=== PATIENT | female | born 1960 | race American Indian/Alaskan Native ===

== ENCOUNTER 2016-11-24 10:30 | Emergency (ER) | payer OTHER ==
--- NOTE | 2016-11-24 18:19 | Emergency Department Report ---
HPI - General Chief Complaint: Extremity Injury, Upper Time Seen by Provider: 11/24/16 17:28 - HPI HPI: 56-year-old female presents today with right hand pain was playing volleyball 3 weeks ago. Patient states that she hurt her right hand but the pain worsened yesterday. Describes her pain as a 9 out of 10 constant, throbbing ache. Positive for pain relief with ice. She tried Tylenol and Advil with temporary relief. Denies numbness, weakness, paresthesias. Denies fevers, chills, nausea , vomiting, chest pain, shortness of breath, abdominal pain. ED Past Medical Hx - Past Medical History Previous Medical History?: Yes Hx GERD: Yes Additional medical history: acid reflux - Surgical History Past Surgical History?: Yes Additional Surgical History: c section - Social History Smoking Status: Never Smoker - Medications Home Medications: Home Medications Medication Instructions Recorded Confirmed Last Taken Type Fluconazole [Diflucan] 150 mg PO QDAY #1 tablet 10/05/13 Unknown Rx RX: Amoxicillin [Trimox CAP] 1,000 mg PO Q8H #60 capsule 10/05/13 Unknown Rx RX: Hydrocodone Bit/Acetaminophen 1 each PO Q6H PRN #11 tablet 10/05/13 Unknown Rx [Lortab 5-500 Tablet] RX: Acetaminophen/Codeine 1 tab PO Q6H PRN #15 tab 03/22/14 Unknown Rx [Acetaminophen-Codeine #3 TAB] RX: Methocarbamol [Robaxin TAB] 750 mg PO Q8H PRN #21 tablet 03/22/14 Unknown Rx RX: Naproxen Sodium (Nf) [Anaprox 550 mg PO BID PRN #14 tablet 03/22/14 Unknown Rx DS TAB] traMADol [Ultram 50 MG tab] 50 mg PO Q4HR PRN #20 tablet 05/24/15 Unknown Rx Naproxen [Naprosyn] 500 mg PO BID #30 tablet 11/24/16 Unknown Rx ED Review of Systems ROS: Stated complaint: RT HAND INJURY Other details as noted in HPI Constitutional: denies: chills, fever, malaise Eyes: denies: eye pain ENT: denies: ear pain, throat pain, congestion Respiratory: denies: cough, shortness of breath, wheezing Cardiovascular: denies: chest pain, palpitations Endocrine: no symptoms reported Gastrointestinal: denies: abdominal pain, nausea, vomiting Musculoskeletal: joint swelling, arthralgia Skin: denies: rash Neurological: denies: headache, weakness, numbness, paresthesias Physical Exam - Physical Exam Vital Signs: Vital Signs 11/24/16 11:29 Temperature 98.6 F Pulse Rate 70 Respiratory 16 Rate Blood Pressure 126/68 O2 Sat by Pulse 100 Oximetry Physical Exam: GENERAL: The patient is well-developed and well-nourished. Patient is in NAD. HEAD: Normocephalic. Atraumatic. CHEST/LUNGS: Clear to auscultation throughout. HEART/CARDIOVASCULAR: Regular rate and rhythm. ABDOMEN: Abdomen is soft, nontender. No guarding or rebound tenderness. RIGHT HAND: Limited range of motion due to pain. Tenderness to palpation over anatomic snuffbox. Positive for edema. Normal sensation. 2 point discrimination intact. Peripheral pulses intact. Capillary refill less than 2 seconds. NEURO: Alert and oriented x 3. Normal gait. ED Course Vital Signs 11/24/16 11:29 Temperature 98.6 F Pulse Rate 70 Respiratory 16 Rate Blood Pressure 126/68 O2 Sat by Pulse 100 Oximetry ED Medical Decision Making - Lab Data Vital Signs 11/24/16 11/24/16 11:29 18:49 Temperature 98.6 F Pulse Rate 70 70 Respiratory 16 18 Rate Blood Pressure 126/68 Blood Pressure 122/64 [Left] O2 Sat by Pulse 100 100 Oximetry - Medical Decision Making 56-year-old female presents today with right hand pain post [place] injury 3 weeks ago. Her x-ray results reveal no fracture or dislocation, mild soft tissue swelling is seen. Patient is recommended to rest, ice, elevate, compress. Patient is in no acute distress at this time. She will be discharged home and is encouraged to follow up with a primary care provider. She will be sent home on naproxen and is encouraged to return to the emergency room for any worsening symptoms. Critical care attestation.: If time is entered above; I have spent that time in minutes in the direct care of this critically ill patient, excluding procedure time. ED Disposition Clinical Impression: Hand pain Qualifiers: Laterality: right Qualified Code(s): M79.641 - Pain in right hand Disposition: DISCHARGED TO HOME OR SELFCARE Is pt being admited?: No Does the pt Need Aspirin: No Condition: Stable Instructions: Hand Sprain (ED), Arthralgia (ED) Additional Instructions: Follow-up with primary care provider. Return to the emergency department if symptoms worsen. Prescriptions: Naproxen [Naprosyn] 500 mg PO BID #30 tablet Referrals: PRIMARY CARE, [Primary Care Provider] - 3-5 Days [facility] [Outside] - 3-5 Days ROSSY FARMER MD [Staff Physician] - 3-5 Days Forms: Work/School Release Form(ED)
[2016-11-24 18:50] VITALS: BP 122/64
--- NOTE | 2016-11-24 18:57 | XRay Report ---
FINAL REPORT PROCEDURE: XR HAND 2V RT TECHNIQUE: Two views of the right hand are obtained HISTORY: Anatomic snuffbox tenderness, limited ROM COMPARISON: No prior studies are available for comparison. FINDINGS: There is no fracture or dislocation. No arthritic changes are seen. There may be mild soft tissue swelling in the base of the 1st finger. No radiopaque foreign body is seen. IMPRESSION: Mild soft tissue swelling is seen.
== END 2016-11-24 19:19 | disposition home or self-care (01) ==
LOC: ED 10:30
DX: M79.641 Pain in right hand (principal); K21.9 Gastro-esophageal reflux disease without esophagitis
CPT/HCPCS: 99283

== ENCOUNTER 2018-05-15 17:20 | Emergency (ER) | payer OTHER ==
[2018-05-15 17:29] VITALS: BP 139/59
--- NOTE | 2018-05-15 18:55 | Emergency Department Report ---
Minor Respiratory - HPI Chief Complaint: Upper Respiratory Infection Stated Complaint: COUGH/ PAIN Time Seen by Provider: 05/15/18 17:55 Duration: 4 Days Pain Location: Chest Severity: moderate Minor Respiratory: Yes Rhinorrhea, Yes Able to Tolerate Fluids, Yes Cough ( productive of yellow sputum), Yes Shortness of Breath, No Sore Throat, No Ear Pain, No Sick Contacts, No Hemoptysis, No Chest Pain, No Fever ED Review of Systems ROS: Stated complaint: COUGH/ PAIN Other details as noted in HPI Comment: All other systems reviewed and negative Musculoskeletal: back pain ED Past Medical Hx - Past Medical History Hx GERD: Yes Additional medical history: acid reflux - Surgical History Additional Surgical History: c section - Social History Smoking Status: Never Smoker Substance Use Type: Alcohol - Medications Home Medications: Home Medications Medication Instructions Recorded Confirmed Last Taken Type Amoxicillin [Trimox CAP] 1,000 mg PO Q8H #60 capsule 10/05/13 Unknown Rx Fluconazole [Diflucan] 150 mg PO QDAY #1 tablet 10/05/13 Unknown Rx Hydrocodone Bit/Acetaminophen 1 each PO Q6H PRN #11 tablet 10/05/13 Unknown Rx [Lortab 5-500 Tablet] Acetaminophen/Codeine [Tylenol 1 tab PO Q6H PRN #15 tab 03/22/14 Unknown Rx /Codeine # 3 tab] Methocarbamol [Robaxin TAB] 750 mg PO Q8H PRN #21 tablet 03/22/14 Unknown Rx Naproxen Sodium (Nf) [Anaprox DS 550 mg PO BID PRN #14 tablet 03/22/14 Unknown Rx TAB] traMADol [Ultram 50 MG tab] 50 mg PO Q4HR PRN #20 tablet 05/24/15 Unknown Rx Naproxen [Naprosyn] 500 mg PO BID #30 tablet 11/24/16 Unknown Rx ALBUTEROL Inhaler [ProAir HFA 2 puff IH QID PRN #1 inhalation 05/15/18 Unknown Rx Inhaler] Azithromycin [Zithromax Z-MARVA] 250 mg PO DAILY #6 tablet 05/15/18 Unknown Rx Benzonatate [Tessalon Perles] 100 mg PO Q8HR #10 capsule 05/15/18 Unknown Rx predniSONE [Deltasone] 20 mg PO QDAY #5 tab 05/15/18 Unknown Rx Minor Respiratory Exam - Exam General: Vital signs noted. No distress. Alert and acting appropriately. HEENT: Yes Moist Mucous Membranes, No Pharyngeal Erythema, No Pharyngeal Exudates, No Rhinorrhea, No Conjuctival Injection, No Frontal Tenderness, No Maxillary Tenderness Ear: Neither TM Bulge, Neither TM Erythema, Neither EAC Pain, Neither EAC Discharge Neck: Yes Supple, No Adenopathy Lungs: Yes Good Air Exchange, No Wheezes, No Ronchi, No Stridor, No Cough, No Labored Respirations, No Retractions, No Use of Accessory Muscles, No Other Abnormal Lung Sounds Heart: Yes Regular, No Murmur Abdomen: Yes Normal Bowel Sounds, No Tenderness, No Peritoneal Signs Skin: No Rash, No Edema Neurologic: Alert and oriented, no deficits. Musculoskeletal: Unremarkable. ED Course Vital Signs 05/15/18 17:25 Temperature 97.6 F Pulse Rate 96 H Respiratory 19 Rate Blood Pressure 139/59 O2 Sat by Pulse 100 Oximetry ED Medical Decision Making - Radiology Data interpreted by me: Chest x-ray shows no acute process Critical care attestation.: If time is entered above; I have spent that time in minutes in the direct care of this critically ill patient, excluding procedure time. ED Disposition Clinical Impression: Acute bronchitis Qualifiers: Bronchitis organism: unspecified organism Qualified Code(s): J20.9 - Acute bronchitis, unspecified Disposition: DC-01 TO HOME OR SELFCARE Is pt being admited?: No Does the pt Need Aspirin: No Condition: Stable Instructions: Acute Bronchitis (ED) Referrals: PRIMARY CARE, [Primary Care Provider] - 3-5 Days
--- NOTE | 2018-05-15 18:56 | XRay Report ---
FINAL REPORT EXAM: XR CHEST ROUTINE 2V HISTORY: [facility] TECHNIQUE: Two view chest PA and lateral PRIORS: None. FINDINGS: Cardiac and mediastinal contours are unremarkable. No focal pulmonary infiltrate is identified. No pleural fluid collection seen. Pulmonary vasculature is unremarkable. IMPRESSION: Negative two-view chest
== END 2018-05-15 19:00 | disposition home or self-care (01) ==
LOC: ED 17:20
DX: J20.9 Acute bronchitis, unspecified (principal); K21.9 Gastro-esophageal reflux disease without esophagitis
CPT/HCPCS: 71046; 99283

== ENCOUNTER 2019-10-14 14:56 | Emergency (ER) | payer OTHER ==
--- NOTE | 2019-10-14 15:09 | Emergency Department Report ---
Blank Doc - Documentation Documentation: 59-year-old female that presents with epigsatric abdominal pain with radiation to back. This initial assessment/diagnostic orders/clinical plan/treatment(s) is/are subject to change based on patient's health status, clinical progression and re- assessment by fellow clinical providers in the ED. Further treatment and workup at subsequent clinical providers discretion. Patient/guardians urged not to elope from the ED as their condition may be serious if not clinically assessed and managed. Initial orders include: 1- Patient sent to [facility] for further evaluation and treatment 2- labs 3- UA
[2019-10-14 15:27] LABS: Basophils % (Auto) 0.9 % (0.0-1.8); Eosinophils # (Auto) 0.1 K/mm3 (0.0-0.4); Eosinophils % (Auto) 2.8 % (0.0-4.3); Hematocrit 39.9 % (30.3-42.9); Hemoglobin 13.5 gm/dl (10.1-14.3); Lymphocytes # (Auto) 2.2 K/mm3 (1.2-5.4); Lymphocytes % (Auto) 51.3 % (13.4-35.0); Mean Corpuscular HGB Conc 34 % (30-34); Mean Corpuscular Volume 92 fl (79-97); Monocytes # (Auto) 0.3 K/mm3 (0.0-0.8); Monocytes % (Auto) 7.5 % (0.0-7.3); Platelet Count 252 K/mm3 (140-440); Red Blood Count 4.34 M/mm3 (3.65-5.03); Red Cell Distribution Width 12.6 % (13.2-15.2)
[2019-10-14 15:46] LABS: Alanine Aminotransferase 11 units/L (7-56); Albumin 4.2 g/dL (3.9-5); BUN/Creatinine Ratio 13; Blood Urea Nitrogen 8 mg/dL (7-17); Calcium 9.4 mg/dL (8.4-10.2); Hemolysis Index 19
--- NOTE | 2019-10-14 16:05 | Emergency Department Report ---
ED Abdominal Pain HPI - General Chief Complaint: Abdominal Pain Stated Complaint: ABD PAIN Time Seen by Provider: 10/14/19 15:07 Source: patient Mode of arrival: Ambulatory Limitations: No Limitations - History of Present Illness Initial Comments: This is a 59-year-old female who gives a very graphic description of burning in her epigastric area which radiates down the anterior aspect of both her thighs. She states that she had an episode of pain last night which was severe. She is totally comfortable the pain has resolved today. She states that she's been going to a family physician since October 04 for burning. She was placed on Nexium she says. She has been out of her Nexium for some time. 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 Patient states he had a biopsy of a mass which "came out okay". She states that she hasn't followed up with the gastroenterology clinic at [facility] for 3 years. She admits that she was told that she had to follow-up with the GI clinic but never did so. MD Complaint: abdominal pain -: Gradual, week(s) Location: epigastric Radiation: other (bilateral legs) Severity: severe (last night was severe now resolved) Quality: burning Consistency: intermittent Improves With: nothing Worsens With: nothing Context: other (see above history) Associated Symptoms: denies other symptoms - Related Data Previous Rx's Medication Instructions Recorded Last Taken Type Amoxicillin [Trimox CAP] 1,000 mg PO Q8H #60 capsule 10/05/13 Unknown Rx Fluconazole [Diflucan] 150 mg PO QDAY #1 tablet 10/05/13 Unknown Rx Hydrocodone Bit/Acetaminophen 1 each PO Q6H PRN #11 tablet 10/05/13 Unknown Rx [Lortab 5-500 Tablet] Acetaminophen/Codeine [Tylenol 1 tab PO Q6H PRN #15 tab 03/22/14 Unknown Rx /Codeine # 3 tab] Naproxen Sodium (Nf) [Anaprox DS 550 mg PO BID PRN #14 tablet 03/22/14 Unknown Rx TAB] methOCARBAMOL [Robaxin TAB] 750 mg PO Q8H PRN #21 tablet 03/22/14 Unknown Rx Naproxen [Naprosyn] 500 mg PO BID #30 tablet 11/24/16 Unknown Rx ALBUTEROL Inhaler (OR & NICU) 2 puff IH QID PRN #1 inhalation 05/15/18 Unknown Rx [ProAir HFA Inhaler] Azithromycin [Zithromax Z-MARVA] 250 mg PO DAILY #6 tablet 05/15/18 Unknown Rx Benzonatate [Tessalon Perles] 100 mg PO Q8HR #10 capsule 05/15/18 Unknown Rx predniSONE [Deltasone] 20 mg PO QDAY #5 tab 05/15/18 Unknown Rx Lansoprazole 30 mg PO BID #60 capsule. 10/14/19 Unknown Rx traMADoL [Ultram 50 MG tab] 50 mg PO Q6HR PRN #10 tablet 10/14/19 Unknown Rx Allergies Allergy/AdvReac Type Severity Reaction Status Date / Time codeine AdvReac Nausea Verified 05/24/15 10:04 hydrocodone AdvReac Nausea Verified 05/24/15 10:04 ED Review of Systems ROS: Stated complaint: ABD PAIN Other details as noted in HPI Constitutional: denies: chills, fever Eyes: denies: eye pain, eye discharge, vision change ENT: denies: ear pain, throat pain Respiratory: denies: cough, shortness of breath, wheezing Cardiovascular: denies: chest pain, palpitations Endocrine: no symptoms reported Gastrointestinal: abdominal pain. denies: nausea, diarrhea Genitourinary: denies: urgency, dysuria, discharge Musculoskeletal: denies: back pain, joint swelling, arthralgia Skin: denies: rash, lesions Neurological: denies: headache, weakness, paresthesias Psychiatric: denies: anxiety, depression Hematological/Lymphatic: denies: easy bleeding, easy bruising ED Past Medical Hx - Past Medical History Previous Medical History?: Yes Hx GERD: Yes Additional medical history: acid reflux. Now states that she had her esophagus stretched and the biopsy of a mass. - Surgical History Past Surgical History?: Yes Additional Surgical History: c section - Social History Smoking Status: Never Smoker Substance Use Type: Alcohol - Medications Home Medications: Home Medications Medication Instructions Recorded Confirmed Last Taken Type Amoxicillin [Trimox CAP] 1,000 mg PO Q8H #60 capsule 10/05/13 Unknown Rx Fluconazole [Diflucan] 150 mg PO QDAY #1 tablet 10/05/13 Unknown Rx Hydrocodone Bit/Acetaminophen 1 each PO Q6H PRN #11 tablet 10/05/13 Unknown Rx [Lortab 5-500 Tablet] Acetaminophen/Codeine [Tylenol 1 tab PO Q6H PRN #15 tab 03/22/14 Unknown Rx /Codeine # 3 tab] Naproxen Sodium (Nf) [Anaprox DS 550 mg PO BID PRN #14 tablet 03/22/14 Unknown Rx TAB] methOCARBAMOL [Robaxin TAB] 750 mg PO Q8H PRN #21 tablet 03/22/14 Unknown Rx Naproxen [Naprosyn] 500 mg PO BID #30 tablet 11/24/16 Unknown Rx ALBUTEROL Inhaler (OR & NICU) 2 puff IH QID PRN #1 inhalation 05/15/18 Unknown Rx [ProAir HFA Inhaler] Azithromycin [Zithromax Z-MARVA] 250 mg PO DAILY #6 tablet 05/15/18 Unknown Rx Benzonatate [Tessalon Perles] 100 mg PO Q8HR #10 capsule 05/15/18 Unknown Rx predniSONE [Deltasone] 20 mg PO QDAY #5 tab 05/15/18 Unknown Rx Lansoprazole 30 mg PO BID #60 capsule.dr 10/14/19 Unknown Rx traMADoL [Ultram 50 MG tab] 50 mg PO Q6HR PRN #10 tablet 10/14/19 Unknown Rx ED Physical Exam - General Limitations: No Limitations General appearance: alert, in no apparent distress, other (appears totally comfortable) - Head Head exam: Present: atraumatic, normocephalic - Eye Eye exam: Present: normal appearance. Absent: scleral icterus - ENT ENT exam: Present: mucous membranes moist - Neck Neck exam: Present: normal inspection. Absent: tenderness, meningismus - Respiratory Respiratory exam: Present: normal lung sounds bilaterally. Absent: respiratory distress - Cardiovascular Cardiovascular Exam: Present: regular rate, normal rhythm. Absent: systolic murmur, diastolic murmur, rubs, gallop - GI/Abdominal GI/Abdominal exam: Present: soft, normal bowel sounds. Absent: distended, tenderness, guarding, rebound, rigid, organomegaly, mass, bruit, pulsatile mass, hernia - Extremities Exam Extremities exam: Present: normal inspection - Back Exam Back exam: Present: normal inspection - Neurological Exam Neurological exam: Present: alert, oriented X3, CN II-XII intact. Absent: motor sensory deficit - Psychiatric Psychiatric exam: Present: normal affect, normal mood - Skin Skin exam: Present: warm, dry, intact, normal color. Absent: rash ED Course Vital Signs 10/14/19 14:58 Temperature 98.3 F Pulse Rate 89 Respiratory 20 Rate Blood Pressure 136/66 O2 Sat by Pulse 98 Oximetry ED Medical Decision Making - Lab Data Result diagrams: 10/14/19 15:17 10/14/19 15:17 Laboratory Results - last 24 hr 10/14/19 10/14/19 15:17 15:17 WBC 4.3 L RBC 4.34 Hgb 13.5 Hct 39.9 MCV 92 MCH 31 MCHC 34 RDW 12.6 L Plt Count 252 Lymph % (Auto) 51.3 H Randall % (Auto) 7.5 H Eos % (Auto) 2.8 Baso % (Auto) 0.9 Lymph # 2.2 Randall # 0.3 Eos # 0.1 Baso # 0.0 Seg Neutrophils % 37.5 L Seg Neutrophils # 1.6 L Sodium 140 Potassium 3.7 Chloride 104.2 Carbon Dioxide 26 Anion Gap 14 BUN 8 Creatinine 0.6 L Estimated GFR > 60 BUN/Creatinine Ratio 13 Glucose 131 H Calcium 9.4 Total Bilirubin 0.70 AST 25 ALT 11 Alkaline Phosphatase 99 Total Protein 7.9 Albumin 4.2 Albumin/Globulin Ratio 1.1 Lipase 48 Critical care attestation.: If time is entered above; I have spent that time in minutes in the direct care of this critically ill patient, excluding procedure time. ED Disposition Clinical Impression: Abdominal pain Qualifiers: Abdominal location: upper abdomen, unspecified Qualified Code(s): R10.10 - Upper abdominal pain, unspecified GERD (gastroesophageal reflux disease) Qualifiers: Esophagitis presence: esophagitis presence not specified Qualified Code(s): K21.9 - Gastro-esophageal reflux disease without esophagitis Disposition: DC-01 TO HOME OR SELFCARE Is pt being admited?: No Does the pt Need Aspirin: No Condition: Stable Instructions: Abdominal Pain (ED), Gastroesophageal Reflux Disease (ED) Additional Instructions: It is essential that you obtain her records from [facility] and/or follow-up with a local field merchandiser. I can't chew on a medicine for reflux and something for pain today. However we could not exclude serious underlying problems from review of our medical records. At this time your blood work is not indicative of a new problem. However, chronic issues certainly require follow-up. Return to the emergency department when you are having an acute problem, difficulty in swallowing or vomiting. Prescriptions: Lansoprazole 30 mg PO BID #60 capsule. traMADoL [Ultram 50 MG tab] 50 mg PO Q6HR PRN #10 tablet PRN Reason: Pain Referrals: [facility] [Provider Group] - 3-5 Days
[2019-10-14 16:07] LABS: Bilirubin,Urine NEG (Negative); Blood,Urine NEG (Negative); Color,Urine Yellow (Yellow); Mucus,Urine FEW /HPF; Protein,Urine <15 mg/dL mg/dL (Negative); Urobilinogen,Urine < 2.0 mg/dL (<2.0); WBC,Urine < 1.0 /HPF (0.0-6.0)
[2019-10-14 17:19] VITALS: BP 134/70
== END 2019-10-14 17:03 | disposition home or self-care (01) ==
LOC: ED 14:56
DX: K21.9 Gastro-esophageal reflux disease without esophagitis (principal)
CPT/HCPCS: 36415; 80053; 81001; 83690; 85025; 99283

== ENCOUNTER 2020-08-23 10:58 | Emergency (ER) | payer OTHER ==
[2020-08-23 11:22] VITALS: BP 124/54
--- NOTE | 2020-08-23 13:20 | Emergency Department Report ---
ED ENT HPI - General Chief complaint: Earache Stated complaint: EARACHE Time Seen by Provider: 08/23/20 12:55 Source: patient Mode of arrival: Ambulatory Limitations: No Limitations - History of Present Illness Initial comments: 60-year-old female complaining of right ear pain headache, facial pain and pressure started few days ago. She denies fever cough chills chest pain or shortness of breath. States that she took half of her tramadol to attempt to relieve the pain but that has only resulted in making her nauseated. Patient has a history of adverse reaction to codeine usually resulting in nausea MD complaint: ear pain -: days(s) (2) Location: R ear Severity: moderate Severity scale (0 -10): 6 Quality: aching Consistency: constant Improves with: none Worsens with: none Associated Symptoms: other. denies: fever, cough, toothache, pain with swallowing, sore throat, tinnitus, hearing loss, rhinorrhea - Related Data Previous Rx's Medication Instructions Recorded Last Taken Type Amoxicillin [Trimox CAP] 1,000 mg PO Q8H #60 capsule 10/05/13 Unknown Rx Fluconazole [Diflucan] 150 mg PO QDAY #1 tablet 10/05/13 Unknown Rx Hydrocodone Bit/Acetaminophen 1 each PO Q6H PRN #11 tablet 10/05/13 Unknown Rx [Lortab 5-500 Tablet] Acetaminophen/Codeine [Tylenol 1 tab PO Q6H PRN #15 tab 03/22/14 Unknown Rx /Codeine # 3 tab] Naproxen Sodium (Nf) [Anaprox DS 550 mg PO BID PRN #14 tablet 03/22/14 Unknown Rx TAB] methOCARBAMOL [Robaxin TAB] 750 mg PO Q8H PRN #21 tablet 03/22/14 Unknown Rx Naproxen [Naprosyn] 500 mg PO BID #30 tablet 11/24/16 Unknown Rx Albuterol Mdi (or & Nicu Only) 2 puff IH QID PRN #1 inhalation 05/15/18 Unknown Rx [ProAir HFA Inhaler] Azithromycin [Zithromax Z-MARVA] 250 mg PO DAILY #6 tablet 05/15/18 Unknown Rx Benzonatate [Tessalon Perles] 100 mg PO Q8HR #10 capsule 05/15/18 Unknown Rx predniSONE [Deltasone] 20 mg PO QDAY #5 tab 05/15/18 Unknown Rx Lansoprazole 30 mg PO BID #60 capsule. 10/14/19 Unknown Rx traMADoL [Ultram 50 MG tab] 50 mg PO Q6HR PRN #10 tablet 10/14/19 Unknown Rx Amoxicillin [Amoxicillin TAB] 875 mg PO BID 10 Days #20 tablet 08/23/20 Unknown Rx methylPREDNISolone [Medrol 4MG 4 mg PO DAILY #1 tab.ds.pk 08/23/20 Unknown Rx DOSEPAK (21 tabs)] Allergies Allergy/AdvReac Type Severity Reaction Status Date / Time codeine AdvReac Nausea Verified 05/24/15 10:04 hydrocodone AdvReac Nausea Verified 05/24/15 10:04 ED Dental HPI - General Chief complaint: Earache Stated complaint: EARACHE Time Seen by Provider: 08/23/20 12:55 Source: patient Mode of arrival: Ambulatory Limitations: No Limitations - Related Data Previous Rx's Medication Instructions Recorded Last Taken Type Amoxicillin [Trimox CAP] 1,000 mg PO Q8H #60 capsule 10/05/13 Unknown Rx Fluconazole [Diflucan] 150 mg PO QDAY #1 tablet 10/05/13 Unknown Rx Hydrocodone Bit/Acetaminophen 1 each PO Q6H PRN #11 tablet 10/05/13 Unknown Rx [Lortab 5-500 Tablet] Acetaminophen/Codeine [Tylenol 1 tab PO Q6H PRN #15 tab 03/22/14 Unknown Rx /Codeine # 3 tab] Naproxen Sodium (Nf) [Anaprox DS 550 mg PO BID PRN #14 tablet 03/22/14 Unknown Rx TAB] methOCARBAMOL [Robaxin TAB] 750 mg PO Q8H PRN #21 tablet 03/22/14 Unknown Rx Naproxen [Naprosyn] 500 mg PO BID #30 tablet 11/24/16 Unknown Rx Albuterol Mdi (or & Nicu Only) 2 puff IH QID PRN #1 inhalation 05/15/18 Unknown Rx [ProAir HFA Inhaler] Azithromycin [Zithromax Z-MARVA] 250 mg PO DAILY #6 tablet 05/15/18 Unknown Rx Benzonatate [Tessalon Perles] 100 mg PO Q8HR #10 capsule 05/15/18 Unknown Rx predniSONE [Deltasone] 20 mg PO QDAY #5 tab 07/09/18 Unknown Rx Lansoprazole 30 mg PO BID #60 capsule. 10/14/19 Unknown Rx traMADoL [Ultram 50 MG tab] 50 mg PO Q6HR PRN #10 tablet 10/14/19 Unknown Rx Amoxicillin [Amoxicillin TAB] 875 mg PO BID 10 Days #20 tablet 08/23/20 Unknown Rx methylPREDNISolone [Medrol 4MG 4 mg PO DAILY #1 tab.ds.pk 08/23/20 Unknown Rx DOSEPAK (21 tabs)] Allergies Allergy/AdvReac Type Severity Reaction Status Date / Time codeine AdvReac Nausea Verified 05/24/15 10:04 hydrocodone AdvReac Nausea Verified 05/24/15 10:04 ED Review of Systems ROS: Stated complaint: EARACHE Other details as noted in HPI Comment: All other systems reviewed and negative Constitutional: denies: chills, fever ENT: ear pain, other (facial pain and pressure ). denies: throat pain, dental pain, hearing loss, congestion Respiratory: denies: cough, shortness of breath, SOB with exertion, wheezing Cardiovascular: denies: chest pain, palpitations, dyspnea on exertion, edema, syncope, paroxysmal nocturnal dyspnea Endocrine: denies: excessive sweating, flushing, intolerance to cold, intolerance to heat, increased hunger, increased thirst Musculoskeletal: denies: back pain Neurological: headache. denies: weakness, numbness, paresthesias, confusion, abnormal gait, vertigo, other Hematological/Lymphatic: denies: easy bleeding ED Past Medical Hx - Past Medical History Previous Medical History?: Yes Hx GERD: Yes Additional medical history: acid reflux. Now states that she had her esophagus stretched and the biopsy of a mass. - Surgical History Past Surgical History?: Yes Additional Surgical History: c section - Social History Smoking Status: Never Smoker Substance Use Type: Alcohol - Medications Home Medications: Home Medications Medication Instructions Recorded Confirmed Last Taken Type Amoxicillin [Trimox CAP] 1,000 mg PO Q8H #60 capsule 10/05/13 Unknown Rx Fluconazole [Diflucan] 150 mg PO QDAY #1 tablet 10/05/13 Unknown Rx Hydrocodone Bit/Acetaminophen 1 each PO Q6H PRN #11 tablet 10/05/13 Unknown Rx [Lortab 5-500 Tablet] Acetaminophen/Codeine [Tylenol 1 tab PO Q6H PRN #15 tab 03/22/14 Unknown Rx /Codeine # 3 tab] Naproxen Sodium (Nf) [Anaprox DS 550 mg PO BID PRN #14 tablet 03/22/14 Unknown Rx TAB] methOCARBAMOL [Robaxin TAB] 750 mg PO Q8H PRN #21 tablet 03/22/14 Unknown Rx Naproxen [Naprosyn] 500 mg PO BID #30 tablet 11/24/16 Unknown Rx Albuterol Mdi (or & Nicu Only) 2 puff IH QID PRN #1 inhalation 05/15/18 Unknown Rx [ProAir HFA Inhaler] Azithromycin [Zithromax Z-MARVA] 250 mg PO DAILY #6 tablet 05/15/18 Unknown Rx Benzonatate [Tessalon Perles] 100 mg PO Q8HR #10 capsule 05/15/18 Unknown Rx predniSONE [Deltasone] 20 mg PO QDAY #5 tab 05/15/18 Unknown Rx Lansoprazole 30 mg PO BID #60 capsule.dr 10/14/19 Unknown Rx traMADoL [Ultram 50 MG tab] 50 mg PO Q6HR PRN #10 tablet 10/14/19 Unknown Rx Amoxicillin [Amoxicillin TAB] 875 mg PO BID 10 Days #20 tablet 08/23/20 Unknown Rx methylPREDNISolone [Medrol 4MG 4 mg PO DAILY #1 tab.ds.pk 08/23/20 Unknown Rx DOSEPAK (21 tabs)] ED Physical Exam - General Limitations: No Limitations General appearance: alert, in no apparent distress - Head Head exam: Present: atraumatic - Eye Eye exam: Present: normal appearance, PERRL, EOMI. Absent: scleral icterus - ENT ENT exam: Present: normal exam, normal orophraynx, mucous membranes moist, TM's normal bilaterally, normal external ear exam, other (frontal and maxillary sinus pain ) - Neck Neck exam: Present: normal inspection. Absent: lymphadenopathy - Respiratory Respiratory exam: Present: normal lung sounds bilaterally. Absent: respiratory distress, wheezes - Cardiovascular Cardiovascular Exam: Present: regular rate, normal heart sounds - Extremities Exam Extremities exam: Present: normal inspection - Back Exam Back exam: Present: normal inspection - Neurological Exam Neurological exam: Present: alert, oriented X3 - Psychiatric Psychiatric exam: Present: normal affect - Skin Skin exam: Present: warm, dry, intact. Absent: normal color, rash ED Course Vital Signs 08/23/20 11:17 Temperature 98.2 F Pulse Rate 70 Respiratory 18 Rate Blood Pressure 124/54 O2 Sat by Pulse 99 Oximetry ED Medical Decision Making - Medical Decision Making Patient with complaint of right ear pain and headache ear exam normal bilaterally she does have sinus tenderness both on maxillary and frontal sinuses also having feeling that her eyes hurt. Plan to treat for acute sinusitis Critical Care Time: No Critical care attestation.: If time is entered above; I have spent that time in minutes in the direct care of this critically ill patient, excluding procedure time. ED Disposition Clinical Impression: Sinusitis Qualifiers: Sinusitis location: pansinusitis Chronicity: acute Recurrence: non-recurrent Qualified Code(s): J01.40 - Acute pansinusitis, unspecified Disposition: TO HOME OR SELFCARE Is pt being admited?: No Does the pt Need Aspirin: No Condition: Stable Instructions: Sinusitis (ED) Additional Instructions: Okay to take [id number] Tylenol 2 tabs every 6 hours as needed for pain do not exceed the daily amount marked on package insert. Follow-up with with your primary care doctor in 3 to 5 days or return to the emergency room for worsening symptoms such as fever severe headache, shortness of breath or chest pain Prescriptions: Amoxicillin [Amoxicillin TAB] 875 mg PO BID 10 Days #20 tablet methylPREDNISolone [Medrol 4MG DOSEPAK (21 tabs)] 4 mg PO DAILY #1 tab.ds.pk Referrals: PRIMARY MD DAVID [Primary Care Provider] - 3-5 Days JONATHAN STALEY MD [Staff Physician] - 3-5 Days Time of Disposition: 13:31
== END 2020-08-23 13:42 | disposition home or self-care (01) ==
LOC: ED 10:58
DX: J32.9 Chronic sinusitis, unspecified (principal); K21.9 Gastro-esophageal reflux disease without esophagitis; Z79.2 Long term (current) use of antibiotics; Z79.899 Other long term (current) drug therapy
CPT/HCPCS: 99281

== ENCOUNTER 2021-09-16 20:20 | Emergency (ER) | payer SELFPAY ==
[2021-09-16 20:51] VITALS: BP 148/63
[2021-09-16] MEDS ORDERED: KETOROLAC 60 MG/2 ML INJ IM ONE (20:58)
[2021-09-16] MEDS ORDERED: KETOROLAC 10 MG TAB PO ONE (21:25)
--- NOTE | 2021-09-16 21:28 | Emergency Department Report ---
ED Back Pain/Injury HPI - General Chief Complaint: Back Pain/Injury Stated Complaint: BACK PAIN Time Seen by Provider: 09/16/21 20:58 Source: patient Limitations: No Limitations - History of Present Illness Initial Comments: Patient is a 61-year-old female presents emergency room complaints of low back pain that began 3 days ago. 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 She denies falling to the ground. She states that she has bilateral lower back pain. She denies any numbness, weakness, bowel or bladder incontinence, fever, nausea, vomiting, diarrhea, urinary symptoms. Patient denies any past medical history. Allergy to codeine and hydrocodone. She denies any steroid use or his tory of cancer. - Related Data Previous Rx's Medication Instructions Recorded Last Taken Type Amoxicillin [Trimox CAP] 1,000 mg PO Q8H #60 capsule 10/05/13 Unknown Rx Fluconazole [Diflucan] 150 mg PO QDAY #1 tablet 10/05/13 Unknown Rx Hydrocodone Bit/Acetaminophen 1 each PO Q6H PRN #11 tablet 10/05/13 Unknown Rx [Lortab 5-500 Tablet] Acetaminophen/Codeine [Tylenol 1 tab PO Q6H PRN #15 tab 03/22/14 Unknown Rx /Codeine # 3 tab] Naproxen Sodium (Nf) [Anaprox DS 550 mg PO BID PRN #14 tablet 03/22/14 Unknown Rx TAB] methOCARBAMOL [Robaxin TAB] 750 mg PO Q8H PRN #21 tablet 03/22/14 Unknown Rx Naproxen [Naprosyn] 500 mg PO BID #30 tablet 11/24/16 Unknown Rx Albuterol Mdi (or & Nicu Only) 2 puff IH QID PRN #1 inhalation 05/15/18 Unknown Rx [ProAir HFA Inhaler] Azithromycin [Zithromax Z-MARVA] 250 mg PO DAILY #6 tablet 05/15/18 Unknown Rx Benzonatate [Tessalon Perles] 100 mg PO Q8HR #10 capsule 05/15/18 Unknown Rx predniSONE [Deltasone] 20 mg PO QDAY #5 tab 05/15/18 Unknown Rx Lansoprazole 30 mg PO BID #60 capsule. 10/14/19 Unknown Rx traMADoL [Ultram 50 MG tab] 50 mg PO Q6HR PRN #10 tablet 10/14/19 Unknown Rx Amoxicillin [Amoxicillin TAB] 875 mg PO BID 10 Days #20 tablet 08/23/20 Unknown Rx methylPREDNISolone [Medrol 4MG 4 mg PO DAILY #1 tab.ds.pk 08/23/20 Unknown Rx DOSEPAK (21 tabs)] Naproxen 375 mg PO BID PRN #14 tablet 09/16/21 Unknown Rx methOCARBAMOL [Robaxin TAB] 500 mg PO BID PRN #14 tablet 09/16/21 Unknown Rx Allergies Allergy/AdvReac Type Severity Reaction Status Date / Time codeine AdvReac Nausea Verified 05/24/15 10:04 hydrocodone AdvReac Nausea Verified 05/24/15 10:04 ED Review of Systems ROS: Stated complaint: BACK PAIN Other details as noted in HPI Comment: All other systems reviewed and negative ED Past Medical Hx - Past Medical History Previous Medical History?: No Hx GERD: Yes Additional medical history: acid reflux. Now states that she had her esophagus stretched and the biopsy of a mass. - Surgical History Past Surgical History?: Yes Additional Surgical History: c section - Social History Smoking Status: Never Smoker Substance Use Type: Alcohol - Medications Home Medications: Home Medications Medication Instructions Recorded Confirmed Last Taken Type Amoxicillin [Trimox CAP] 1,000 mg PO Q8H #60 capsule 10/05/13 Unknown Rx Fluconazole [Diflucan] 150 mg PO QDAY #1 tablet 10/05/13 Unknown Rx Hydrocodone Bit/Acetaminophen 1 each PO Q6H PRN #11 tablet 10/05/13 Unknown Rx [Lortab 5-500 Tablet] Acetaminophen/Codeine [Tylenol 1 tab PO Q6H PRN #15 tab 03/22/14 Unknown Rx /Codeine # 3 tab] Naproxen Sodium (Nf) [Anaprox DS 550 mg PO BID PRN #14 tablet 03/22/14 Unknown Rx TAB] methOCARBAMOL [Robaxin TAB] 750 mg PO Q8H PRN #21 tablet 03/22/14 Unknown Rx Naproxen [Naprosyn] 500 mg PO BID #30 tablet 11/24/16 Unknown Rx Albuterol Mdi (or & Nicu Only) 2 puff IH QID PRN #1 inhalation 05/15/18 Unknown Rx [ProAir HFA Inhaler] Azithromycin [Zithromax Z-MARVA] 250 mg PO DAILY #6 tablet 05/15/18 Unknown Rx Benzonatate [Tessalon Perles] 100 mg PO Q8HR #10 capsule 05/15/18 Unknown Rx predniSONE [Deltasone] 20 mg PO QDAY #5 tab 05/15/18 Unknown Rx Lansoprazole 30 mg PO BID #60 capsule.dr 10/14/19 Unknown Rx traMADoL [Ultram 50 MG tab] 50 mg PO Q6HR PRN #10 tablet 10/14/19 Unknown Rx Amoxicillin [Amoxicillin TAB] 875 mg PO BID 10 Days #20 tablet 08/23/20 Unknown Rx methylPREDNISolone [Medrol 4MG 4 mg PO DAILY #1 tab.ds.pk 08/23/20 Unknown Rx DOSEPAK (21 tabs)] Naproxen 375 mg PO BID PRN #14 tablet 09/16/21 Unknown Rx methOCARBAMOL [Robaxin TAB] 500 mg PO BID PRN #14 tablet 09/16/21 Unknown Rx ED Physical Exam - General Limitations: No Limitations General appearance: alert, in no apparent distress - Head Head exam: Present: atraumatic, normocephalic - Eye Eye exam: Present: normal appearance - ENT ENT exam: Present: mucous membranes moist - Neck Neck exam: Present: normal inspection, full ROM. Absent: tenderness, meningismus - Respiratory Respiratory exam: Present: normal lung sounds bilaterally. Absent: respiratory distress, wheezes, rales, rhonchi, stridor, chest wall tenderness, accessory muscle use, decreased breath sounds, prolonged expiratory - Cardiovascular Cardiovascular Exam: Present: regular rate, normal rhythm, normal heart sounds. Absent: systolic murmur, diastolic murmur, rubs, gallop - Back Exam Back exam: Present: normal inspection, full ROM, paraspinal tenderness (bilateral lumbar paraspinal muscular ttp, no midline C-spine, T-spine or L- spine ttp, no step offs, no deformities ). Absent: vertebral tenderness - Neurological Exam Neurological exam: Present: alert, oriented X3, CN II-XII intact, normal gait. Absent: motor sensory deficit - Psychiatric Psychiatric exam: Present: normal affect, normal mood - Skin Skin exam: Present: warm, dry, intact ED Course Vital Signs 09/16/21 20:48 Temperature 98.4 F Pulse Rate 60 Respiratory 16 Rate Blood Pressure 148/63 [Left] O2 Sat by Pulse 100 Oximetry ED Medical Decision Making - Radiology Data Radiology results: report reviewed Ordering Physician: SCOTTY VILLASENOR Date of Service: 09/16/21 Procedure(s): XR spine lumbosacral 2-3V Accession Number(s): [id number] cc: SCOTTY VILLASENOR Fluoro Time In Minutes: LUMBAR SPINE 2 VIEWS INDICATION / CLINICAL INFORMATION: low back pain after lifting. COMPARISON: None available. FINDINGS: VERTEBRAE: No acute fracture. Mild dextroconvex curvature. DISC SPACES / FACET JOINTS:Mild scattered degenerative disc disease. PARASPINAL SOFT TISSUES:No significant abnormality. ADDITIONAL FINDINGS: None. Signer Name: Giacomo Solorio DO Signed: 09/16/2021 10:06 PM Workstation Name: [id number] Transcribed By: IRINEO Dictated By: GIACOMO SOLORIO DO Electronically Authenticated By: GIACOMO SOLORIO DO Signed Date/Time: 09/16/212205 DD/ 05 TD/TT: - Medical Decision Making Patient is a 61-year-old female presents emergency room complaints of low back pain that began 3 days ago. 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 She denies falling to the ground. She states that she has bilateral lower back pain. She denies any numbness, weakness, bowel or bladder incontinence, fever, nausea, vomiting, diarrhea, urinary symptoms. Patient denies any past medical history. Allergy to codeine and hydrocodone. She denies any steroid use or history of cancer. Vitals are stable. On exam:bilateral lumbar paraspinal muscular ttp, no midline C-spine, T-spine or L-spine ttp, no step offs, no deformities, no focal neuro deficits, patient is ambulatory. Patient drove herself to the emergency department, offered IM Toradol, she declines injection, given p.o. Toradol. X-ray lumbar spine VERTEBRAE: No acute fracture. Mild dextroconvex curvature. DISC SPACES / FACET JOINTS:Mild scattered degenerative disc disease. PARASPINAL SOFT TISSUES:No significant abnormality. ADDITIONAL FINDINGS: None. Discussed results with patient. Discussed the importance outpatient follow-up. Discussed return precautions. Advised patient Take medication as prescribed as needed. May use ice pack, heating pad, rest, and epsom salt bath. Follow-up with a primary care doctor. Follow-up with a plasma specialist if symptoms or not improving. Return to emergency room for any new or worse symptoms. Critical care attestation.: If time is entered above; I have spent that time in minutes in the direct care of this critically ill patient, excluding procedure time. ED Disposition Clinical Impression: Low back pain Qualifiers: Chronicity: acute Back pain laterality: bilateral Sciatica presence: without sciatica Qualified Code(s): M54.50 - Low back pain, unspecified Disposition: HOME / SELF CARE / HOMELESS Is pt being admited?: No Does the pt Need Aspirin: No Condition: Stable Instructions: Muscle Strain, [id number] Additional Instructions: Take medication as prescribed as needed. May use ice pack, heating pad, rest, and epsom salt bath. Follow-up with a primary care doctor. Follow-up with a plasma specialist if symptoms or not improving. Return to emergency room for any new or worse symptoms. Prescriptions: Naproxen 375 mg PO BID PRN #14 tablet PRN Reason: pain methOCARBAMOL [Robaxin TAB] 500 mg PO BID PRN #14 tablet PRN Reason: muscle spasm/pain Referrals: your, primary care doctor [Other] - 2-3 Days CARLTON THOMSON II, MD [Staff Physician] - 2-3 Days Time of Disposition: 22:15 Print Language: SUDANESE
--- NOTE | 2021-09-16 22:11 | XRay Report ---
LUMBAR SPINE 2 VIEWS INDICATION / CLINICAL INFORMATION: low back pain after lifting. COMPARISON: None available. FINDINGS: VERTEBRAE: No acute fracture. Mild dextroconvex curvature. DISC SPACES / FACET JOINTS:Mild scattered degenerative disc disease. PARASPINAL SOFT TISSUES:No significant abnormality. ADDITIONAL FINDINGS: None. Signer Name: Giacomo Solorio DO Signed: 09/16/2021 10:06 PM Workstation Name: [id number]
== END 2021-09-16 23:04 | disposition home or self-care (01) ==
LOC: ED 20:20
DX: M54.50 Low back pain, unspecified (principal); K21.9 Gastro-esophageal reflux disease without esophagitis; Z72.89 Other problems related to lifestyle; Z88.5 Allergy status to narcotic agent; Z79.899 Other long term (current) drug therapy
CPT/HCPCS: 72100; 96372; 99283; J1885